=== PATIENT | male | born 1970 | race African-American/Black ===

== ENCOUNTER 2016-12-17 16:44 | Emergency (ER) | payer OTHER ==
--- NOTE | 2016-12-17 18:19 | RAD ---
LEFT ELBOW 3 VIEWS HISTORY: Left elbow bursitis COMPARISONS: None. TECHNIQUE: Frontal, lateral, and oblique views of the left elbow. ALIGNMENT: Grossly unremarkable. FRACTURE: No displaced acute fracture. SOFT TISSUES: Pronounced prominence of soft tissues posterior to the olecranon process in keeping with provided history of bursitis. No joint effusion. RADIOOPAQUE FOREIGN BODY: None. IMPRESSION: Prominence of posterior soft tissues in keeping with history of bursitis. No malalignment, fracture, or destructive lesion.
== END 2016-12-17 18:20 | disposition home or self-care (01) ==
LOC: ED 16:44
DX: M70.22 Olecranon bursitis, left elbow (principal)

== ENCOUNTER 2016-12-28 17:01 | Emergency (ER) | payer OTHER ==
[2016-12-28 19:02] LABS: SYNOVIAL FLUID APPEARANCE TURBID; SYNOVIAL FLUID COLOR RED; SYNOVIAL FLUID SOURCE LEFT ELBOW
[2016-12-28 19:03] LABS: SYNOVIAL FLUID NEUTROPHILS 14 % (0-20)
== END 2016-12-28 17:44 | disposition home or self-care (01) ==
LOC: ED 17:01
DX: M70.32 Other bursitis of elbow, left elbow (principal)